=== PATIENT | male | born 1970 | race African-American/Black ===

== ENCOUNTER 2017-05-28 12:56 | Emergency (ER) | payer MEDICAID ==
[2017-05-28 13:20] VITALS: BP 160/94; BMI 25.1
--- NOTE | 2017-05-28 16:39 | DR.MBACK ---
HPI - Time Seen Time seen: 15:50 - PCP Primary Care Physician: COTY DANGELO - Complaint Chief Complaint Doctors Comments: "Back pain" Chief Complaint:: LOWER BACK PAIN. ACROSS LOWER BACK BILATERAL WITH PAIN DOWN BOTH LEGS Self Treatment fo Chief Complaint: TAKING MEDS AT HOME - Reviewed Nurses Notes Review: Yes - Source History Provided: Patient - Mode of Arrival Mode of Arrival: Ambulatory - Timing Onset of Chief Complaint: 05/25/17 - Location Back Pain Location: Upper, Lower, BACK, Lumbar - Associated Signs and Symptoms Numbness: Right, Left, Leg Weakness: None PMH - PMH Past Medical History: Yes Past Medical History: Asthma, Headaches, Hypertension Past Surgical History: Yes Surgical History: Other Past Surgical History Comment: HIP CYST - Family History History of Family Medical Conditions: Yes Family Medical History: Diabetes Mellitus, Hypertension - Social History Alcohol Use: None Do you use any recreational Drugs:: No Lives With: Significant Other Lives Where: Home - infectious screening In the last 2 months have you had wt loss of >10#?: NO Have you had fever, night sweats or hemotysis?: No Have you traveled outside the country in the last 6 months?: No Isolation: Standard ROS - Review of Systems Constitutional: No Symptoms Reported Respiratoy: No Symptoms Reported Cardiovascular: No Symptoms Reported Gastrointestinal/Abdominal: Other (umbilical hernia) Neurological: No Symptoms Reported Musculoskeletal: Back Pain Integumentary: No Symptoms Reported Hematologic/Lymphatic: No Symptoms Reported Endocrine: No Symptoms Reported Psychiatric: No Symptoms Reported All Other Systems: Reviewed and Negative PE - Vital Signs Vitals: Temperature 98.2 F Pulse Rate 101 Respiratory Rate 18 Blood Pressure 160/94 O2 Sat by Pulse Oximetry 98 - General Limitations: No Limitations - Chest Chest Inspection: Normal Inspection, Symmetric Chest Wall Rise - Respiratory Respiratory Exam: Normal Lung Sounds Bilat Respiratory Exam: Bilateral Clear to Auscultation - Cardiovascular Cardiovascular Exam: Regular Rate, Normal Rhythm, Normal Heart Sounds - Abdominal Exam Abdominal Exam: Normal Inspection, Mass (umbilical hernia easily reduced) - Back Back Exam: Normal Inspection, Full ROM. negative: Muscle Spasm, Paraspinal Tenderness - Neurological Neurological Exam: Alert, Oriented X3, CN II-XII Intact, Normal Gait - Skin Skin Exam: Warm, Dry, Intact, Normal Color - Diagnosis Discharge Problem: Back pain - Discharge Plan Disposition: 01 HOME, SELF-CARE Condition: Stable - Follow ups/Referrals Follow ups/Referrals: LANDRUM,JASMIN [Primary Care Provider] - 3 days - Instructions
[2017-05-28] MEDS ORDERED: TORADOL 60 MG VIAL IM ONE (16:42)
[2017-05-28] MEDS ORDERED: DECADRON INJ IM ONE (16:42)
[2017-05-28] MEDS ORDERED: TORADOL 60 MG VIAL ONE (17:01)
[2017-05-28] MEDS ORDERED: DECADRON INJ ONE (17:01)
== END 2017-05-28 17:14 | disposition home or self-care (01) ==
LOC: ER 13:30
DX: M54.5 Low back pain (principal)
CPT/HCPCS: 96372; 99282; J1100; J1885

== ENCOUNTER → 2017-07-31 | Outpatient (CLI) | payer MEDICAID ==
[2017-07-31 09:42] LABS: BASOPHILS % (AUTO) 0.9 % (0.2-1.0); EOSINOPHILS # (AUTO) 0.2 x10^3/uL (0.0-0.2); EOSINOPHILS % (AUTO) 6.2 % (0.9-2.9); HEMATOCRIT 43.7 % (42.0-54.0); LYMPHOCYTES # (AUTO) 1.8 X10^3/uL (1.3-2.9); LYMPHOCYTES % (AUTO) 49.4 % (21.0-51.0); MEAN CORPUSCULAR HEMOGLOBIN 29.8 pg (27.0-34.0); MEAN CORPUSCULAR HGB CONC 34.3 g/dL (33.0-35.0); MEAN CORPUSCULAR VOLUME 86.8 fL (80.0-100.0); MEAN PLATELET VOLUME 8.3 fL (7.4-11.0); MONOCYTES # (AUTO) 0.3 x10^3/uL (0.3-0.8); MONOCYTES % (AUTO) 9.5 % (0.0-13.0); NEUTROPHILS # (AUTO) 1.2 x10^3/uL (2.2-4.8); PLATELET COUNT 211 X10^3/uL (150.0-450.0); RED BLOOD COUNT 5.04 X10^6/uL (4.7-6.0); RED CELL DISTRIBUTION WIDTH 15.5 % (11.6-16.5); WHITE BLOOD COUNT 3.7 X10^3/uL (3.6-10.0)
[2017-07-31 10:04] LABS: ALANINE AMINOTRANSFERASE 61 Units/L (12-78); ALBUMIN 3.8 g/dL (3.4-5.0); ALKALINE PHOSPHATASE 38 Units/L (46-116); BLOOD UREA NITROGEN 8 mg/dL (7-18); CALCIUM 9.1 mg/dL (8.5-10.1); CARBON DIOXIDE 30.6 mmol/L (21-32); CHLORIDE 102 mmol/L (98-107); CHOL/HDL RATIO 12.6 (0.0-5.0); CHOLESTEROL 364 mg/dL (0-200); CREATININE 1.17 mg/dL (0.70-1.30); FREE T4 (FREE THYROXINE) 0.92 ng/dL (0.76-1.46); HDL CHOLESTEROL 29 mg/dL (40-60); SODIUM 138 mmol/L (136-145); TOTAL PROTEIN 7.1 g/dL (6.4-8.2); TRIGLYCERIDES 729 mg/dL (0-150); TSH (3RD GENERATION) 2.007 uIU/mL (0.358-3.74); eGFR BLACK RACES > 60 (>60); eGFR NON BLACK RACES > 60 (>60)
[2017-07-31 10:30] LABS: ASPARTATE AMINO TRANSFERASE 33 Units/L (15-37)
== END ==
LOC: LAB 09:21
PROVIDERS: ATTEND Nurse Practitioner Family
DX: Z00.00 Encounter for general adult medical examination without abnormal findings (principal)
CPT/HCPCS: 36415; 80053; 80061; 84439; 84443; 85025